=== PATIENT | female | born 1965 | race Caucasian/White ===

== ENCOUNTER 2018-08-12 00:41 | Emergency (ER) | payer OTHER ==
--- NOTE | 2018-08-12 00:50 | ED Physician Documentation ---
General Adult - HISTORIAN Historian: patient - HPI Stated Complaint: cough x 3 hours Chief Complaint: Cough/ Upper Respiratory Onset: hours (3) Timing: still present Severity: mild Further Comments: yes (She states she woke 3 hours ago with a cough. No fever. No other complaints. She states she will not complete tests as ordered she just wants us to listen and tell if she has pneumoina. She cristal any other complaints) Last known Well Code/Unknown Code: Unknown - ROS CONST: no problems CVS/RESP: shortness of breath, cough. denies: chest pain GI/: none MS/SKIN/LYMPH: none - PAST HX Past History: none Other History: none Surgeries/Procedures: hysterectomy Immunizations: UTD Allergies/Adverse Reactions: Allergies Allergy/AdvReac Type Severity Reaction Status Date / Time Penicillins Allergy Verified 08/12/18 03:12 Sulfa (Sulfonamide Allergy Verified 08/12/18 03:12 Antibiotics) Home Medications: Ambulatory Orders Medication Instructions Recorded NK 08/12/18 - SOCIAL HX Smoking History: cigarettes Alcohol Use: heavy Drug Use: none - FAMILY HX Family History: No - VITAL SIGNS Vital Signs: Vital Signs Temp Pulse Resp BP Pulse Ox 122/72 09/26/13 02:31 - REVIEWED ASSESSMENTS Nursing Assessment Reviewed: Yes Vitals Reviewed: Yes Progress - Progress Progress: 0150: decrease in wheezing. Pt does not want any "extra" charges DG 0230: wheezing improved. She is tolerating without oxygen. Results discussed they are agreeable to plan. She does not want to be admitted DG 0250: Discussed admission criteria - she is refusing to stay admission. Oxygen sat without oxygen is over 94% DG ED Results Lab/Radiology - Radiology Radiology Impressions: PA and lateral chest Clinical history: Cough. Findings: Examination of the chest in PA and lateral views demonstrates infiltrate right perihilar region and right middle lobe. Lungs are mildly hyperinflated. Cardiovascular and mediastinal silhouettes are within normal limits. Impression: 1. Right-sided infiltrate. 2. Hyperinflation. Electronically signed on Aug 12, 2018 2:11:57 AM DENTAL PRACTICE MANAGER by: Dudley Giraldo General Adult Physical Exam - PHYSICAL EXAM GENERAL APPEARANCE: no distress EENT: eye inspection normal, no signs of dehydration NECK: normal inspection RESPIRATORY: no resp distress, wheezes, rhonchi CVS: reg rate & rhythm, heart sounds normal, equal pulses, no murmur ABDOMEN: soft, no distension EXTREMITIES: non-tender, normal range of motion, no evidence of injury, no edema NEURO: oriented X3, CN's nml as tested, motor nml Discharge Clincal Impression: Hyponatremia Pneumonia Qualifiers: Pneumonia type: due to unspecified organism Laterality: right Lung location: unspecified part of lung Qualified Code(s): J18.9 - Pneumonia, unspecified organism Comments: 1. Follow up with PCP in 2 days for repeat lab 2. Azithromycin 250 mg take 1 by mouth daily x 4 days (initial dose in ER) 3. Medrol Dose pack 4 mg take as directed 4. ProAir take 2 puffs by mouth every 4 hours as needed for cough 5. Return to ER for any concerns Condition: Stable Disposition: 01 HOME, SELF-CARE Decision to Admit: NO Date of Decison to Admit: 08/12/18 Decision Time: 03:00
[2018-08-12] MEDS ORDERED: IPRATROPIUM/ALBUTEROL SULFATE 3 ML AMPUL.NEB NEB ONE (00:54)
[2018-08-12] MEDS ORDERED: methylPREDNISolone SOD SUCC 125 MG/2 ML VIAL IVP ONE (01:08)
[2018-08-12] MEDS ORDERED: 0.9 % SODIUM CHLORIDE 1,000 ML IV ONE (01:49)
[2018-08-12] MEDS ORDERED: AZITHROMYCIN 250 MG TABLET PO ONE (02:18)
[2018-08-12 03:12] VITALS: BP 129/74
--- NOTE | 2018-08-12 06:39 | Diagnostic Imaging Report ---
[facility] WH[facility] [id number] [facility] [address], [place]. [address] Report Submission Date: Aug 12, 2018 2:11:57 AM VOCATIONAL PLACEMENT SPECIALIST Patient Study Name: LAVON CASTLE Date: Aug 12, 2018 1:51:39 AM VOCATIONAL PLACEMENT SPECIALIST Modality Type: DX Gender: F Description: CHEST : 69 Institution: Physician: [facility] WHITE PA and lateral chest Clinical history: Cough. Findings: Examination of the chest in PA and lateral views demonstrates infiltrate right perihilar region and right middle lobe. Lungs are mildly hyperinflated. Cardiovascular and mediastinal silhouettes are within normal limits. Impression: 1. Right-sided infiltrate. 2. Hyperinflation. Electronically signed on Aug 12, 2018 2:11:57 AM VOCATIONAL PLACEMENT SPECIALIST by: Dudley CALVILLO
[2018-08-12 07:48] LABS: BASOPHILS % 0.7 (0.0-1.5); EOSINOPHILS % 1.8 % (0.0-6.8); MONOCYTES % 7.4 % (0.0-11.0); NEUTROPHILS # 3.2 # k/uL (1.4-7.7)
[2018-08-12 07:49] LABS: eGFR (Non-African) > 60
== END 2018-08-12 03:03 | disposition home or self-care (01) ==
LOC: ED 00:41
DX: J18.9 Pneumonia, unspecified organism (principal); E87.1 Hypo-osmolality and hyponatremia
CPT/HCPCS: 36415; 71046; 80053; 80320; 85025; 87040; 94640; 96365; 96375; 99283; 99284; J2930; J7030; G0480; S1016